=== PATIENT | female | born 1995 | race Caucasian/White ===

== ENCOUNTER 2024-05-26 06:57 | Emergency (ER) | payer BC ==
[~2024-05-26] VITALS: Ht 165.1 cm; Wt 65.8 kg
[2024-05-26 07:02] VITALS: BP 135/92; PULSE 76; RESP 14; TEMP 97.8; O2SAT 99
[2024-05-26] MEDS: FAMOTIDINE 20 MG TAB PO ONE (07:19)
[2024-05-26] MEDS: ALUMINUM HYD/MAG/SIMETHICONE 30 ML UDC PO ONE (07:19)
[2024-05-26 08:24] LABS: BASOPHILS % (AUTO) 0.5 % (0.0-2.0); EOSINOPHILS # (AUTO) 0.2 K/uL (0-0.4); EOSINOPHILS % (AUTO) 2.1 % (0.0-4.0); HEMATOCRIT 41.5 % (36-48); HEMOGLOBIN 13.5 g/dL (12.0-16.0); LYMPHOCYTES # (AUTO) 1.9 K/uL (2.5-16.5); LYMPHOCYTES % (AUTO) 21.1 % (20.5-51.1); MEAN CORPUSCULAR HEMOGLOBIN 28 pg (27-31); MEAN CORPUSCULAR HGB CONC 33 g/dL (33-37); MEAN CORPUSCULAR VOLUME 86.5 fL (80-94); MONOCYTES # (AUTO) 0.6 K/uL (0.8-1.0); MONOCYTES % (AUTO) 6.1 % (1.7-9.3); NEUTROPHILS # (AUTO) 6.5 K/uL (1.8-7.7); NEUTROPHILS % (AUTO) 70.2 % (42.2-75.2); PLATELET COUNT (AUTO) 216 K/uL (140-450); RED BLOOD CELL COUNT(AUTO) 4.79 MIL/uL (4.20-5.40); RED CELL DISTRIBUTION WIDTH 14.3 % (11.6-13.7); WHITE BLOOD COUNT (AUTO) 9.2 K/uL (4.8-10.8)
[2024-05-26 08:33] LABS: ANION GAP 11.3 (8-16); CALCIUM 8.9 mg/dL (8.5-10.1); CARBON DIOXIDE 27.6 mmol/L (21-32); POTASSIUM 3.9 mmol/L (3.5-5.1)
[2024-05-26 09:02] VITALS: BP 130/82; PULSE 77; RESP 16; TEMP 97.8; O2SAT 99
== END 2024-05-26 09:02 | disposition home or self-care (01) ==
LOC: MED 06:57
DX: R11.10 Vomiting, unspecified (principal); R10.13 Epigastric pain; R03.0 Elevated blood-pressure reading, without diagnosis of hypertension
CPT/HCPCS: 36415; 71045; 80048; 81025; 83690; 85025; 99284; Q0092